=== PATIENT | male | born 1965 | race Caucasian/White ===

== ENCOUNTER 2017-08-05 01:32 | Emergency (ER) | payer SELFPAY ==
--- NOTE | 2017-08-05 03:23 | ER ---
HISTORY OF PRESENT ILLNESS: A 52-year-old male who comes in by ambulance after falling outside and hitting his head with loss of consciousness for 4 to 5 minutes. This information comes from his son who was here with him. The patient was drinking alcohol and was obviously intoxicated. He was not driving. EMS personnel report that there was a small amount of blood on the ground, and they noticed an abrasion injury on the back of his head. No other injuries were noted at that time. The patient does not take any medications. OBJECTIVE: GENERAL APPEARANCE: The patient is awake, obviously intoxicated, no respiratory distress. He is resistive to being here and answering questions. His son is answering most of the questions for him. The patient has previously been healthy, and he is denying any pain. VITAL SIGNS: Reviewed and are normal. HEENT: Examining the back of the patient's head reveals a small superficial abrasion injury just to the right of midline. There is no active bleeding at this time. Minimal swelling present. Pupils are equal, they are slightly sluggish to light, and EOMS are roughly intact. Oral mucous membranes are moist. Tonsils are not enlarged or injected. Pharynx not inflamed. NECK: Supple. LUNGS: Clear. SKIN: Warm and dry. LAB AND X-RAY: Head CT is obtained with normal or negative findings. DIAGNOSES: 1. Head injury with temporary loss of consciousness. 2. Alcohol intoxication. TREATMENT PLAN: The patient will be discharged with family members to go home and rest. They are to monitor him closely overnight, and followup is p.r.n. if any further symptoms should develop. CRS/MODL /[id number]
--- NOTE | 2017-08-05 09:01 | CT ---
DATE OF SERVICE: 08/05/2017 CLINICAL DATA: Fall with LOC. UNENHANCED BRAIN CT Multislice acquisition through the brain without IV contrast was performed. Comparison is made to a prior exam dated 04/26/2015. No masses or mass effect. No intracranial hemorrhage. No evidence of acute or subacute infarct. No osseous abnormalities. There is mucosal thickening in the ethmoid, sphenoid, maxillary, and frontal sinuses. There are also air-fluid levels noted within the maxillary and sphenoid sinuses. The findings are consistent with sinusitis. IMPRESSION: No acute intracranial abnormalities. Findings consistent with sinusitis. [id number] [facility]
== END 2017-08-05 02:38 | disposition home or self-care (01) ==
LOC: LB.ED 01:32
DX: S06.9X1A Unspecified intracranial injury with loss of consciousness of 30 minutes or less, initial encounter (principal); W19.XXXA Unspecified fall, initial encounter; F10.129 Alcohol abuse with intoxication, unspecified
CPT/HCPCS: 70450; 99284; A0425; A0429; 99283